=== PATIENT | male | born 1965 | race Asian ===

== ENCOUNTER 2019-05-20 03:09 | Outpatient (CLI) | payer BC, SELFPAY ==
--- NOTE | 2019-05-20 07:04 | DI.US_ITS ---
EXAM: US ABDOMEN CLINICAL HISTORY: RUQ PAIN, R10.11 TECHNIQUE: Ultrasound performed using standard protocol. COMPARISON: ABDOMEN ULTRASOUND (P) from 05/22/2017 FINDINGS: Ultrasound examination of the was performed according to the usual protocol. Note is made septated c yst of the right hepatic lobe measuring 26 x 12 x 16 millimeters, grossly unchanged from prior study 05/22/2017. No evidence of cholelithiasis or biliary dilatation. Pancreas is unremarkable in appearance as visua lized although not ideally seen. Spleen appears normal. Kidneys are unremarkable in appearance. Ab dominal aorta and IVC are of normal diameter. IMPRESSION: Essentially negative abdominal ultrasound.
[2019-05-20 08:02] LABS: HCT 39.8 % (40.0-50.0); HGB 13.6 g/dL (13.5-17.5); Mean Corp. HGB Concentration 34.2 g/dL (32.0-36.0); Mean Corpuscular Hemoglobin 30.2 pg (27.0-33.0); Mean Corpuscular Volume 88.2 fL (80-95); Mean Platelet Volume 10.1 fL (8.0-11.0); Platelet Count 259 x1000/uL (130-400); RBC 4.51 m/cumm (4.50-6.00); RBC Distribution Width 11.9 % (11.8-14.1); White Blood Cell Count 4.72 k/cumm (4.4-10.8)
[2019-05-20 08:37] LABS: ALT 145 U/L (16-63); AST 56 U/L (15-37); Alkaline Phosphatase 97 U/L (46-116); Anion Gap 8.2 mmol/L (3-11); BUN 16 mg/dL (7-18); Bilirubin, Total 0.8 mg/dL (0.2-1.0); CO2 27.8 mmol/L (21.0-32.0); CREATININE 0.83 mg/dL (0.70-1.30); Calcium 8.8 mg/dL (8.5-10.1); Calculated LDL 162 mg/dL; Chloride 105 mmol/L (98-107); Cholesterol 231 mg/dL (<200); Glucose 93 mg/dL (74-106); HDL Cholesterol 61 mg/dL (40-60); Potassium 3.8 mmol/L (3.5-5.1); Sodium 141 mmol/L (136-145); Total Protein 6.9 g/dL (6.4-8.2); Triglyceride 40 mg/dL (<150)
== END 2019-05-20 03:29 ==
PROVIDERS: PCP Nurse Practitioner; Visit Provider Nurse Practitioner
DX: R10.11 Right upper quadrant pain (principal); Z13.220 Encounter for screening for lipoid disorders; K76.89 Other specified diseases of liver
CPT/HCPCS: 36415; 80053; 80061; 85027; 76700

== ENCOUNTER 2020-08-30 02:10 | Outpatient (CLI) | payer BC, SELFPAY ==
--- NOTE | 2020-08-30 07:45 | DI.US_ITS ---
EXAM: US RENAL CLINICAL HISTORY: R sided flank pain, proteinurIA,R80.9 TECHNIQUE: Ultrasound of both kidneys performed using standard protocol. COMPARISON: US US ABDOMEN from 05/20/2019 FINDINGS: RIGHT KIDNEY: Measures 10.3 cm in length. No cysts evident. Normal cortical thickness and corticomedullary differen tiation .No solid masses No intrarenal calculi nor hydronephrosis. LEFT KIDNEY: Measures 10.3 cm in length. No cysts evident. Normal cortical thickness and corticomedullary differe ntiaion. No solids masses. No intrarenal calculi nor hydonephrosis. URINARY BLADDER: Prevoid volume is 163 cc Postvoid volume is 4 cc No evidence of bladder mass nor diverticuli. Ureterovesical jets: Both identified and appear symmetrical IMPRESSION: 1. No significant ultrasound findings in the kidneys. 2. Bladder empties adequately. Prostate size appears upper. DATA REPOSITORY:
== END 2020-08-30 02:30 ==
PROVIDERS: PCP Nurse Practitioner; Visit Provider Family Medicine
DX: R80.9 Proteinuria, unspecified (principal); R10.9 Unspecified abdominal pain
CPT/HCPCS: 76770

== ENCOUNTER 2020-08-30 03:24 | Outpatient (CLI) | payer BC, SELFPAY ==
[2020-08-30 09:13] LABS: ALT 180 U/L (16-63); AST 98 U/L (15-37); Albumin 4.3 g/dL (3.4-5.0); Alkaline Phosphatase 135 U/L (46-116); BUN 15 mg/dL (7-18); Bilirubin, Direct 0.3 mg/dL (0.0-0.2); CREATININE 0.9 mg/dL (0.70-1.30); Calcium 9.4 mg/dL (8.5-10.1); Chloride 100 mmol/L (98-107); Glucose 129 mg/dL (74-106); Potassium 4.5 mmol/L (3.5-5.1); Sodium 137 mmol/L (136-145); Total Protein 7.5 g/dL (6.4-8.2)
== END 2020-08-30 03:25 | disposition home or self-care (01) ==
LOC: LBO 03:25
PROVIDERS: Family Medicine; PCP Nurse Practitioner; Visit Provider Nurse Practitioner
DX: R80.9 Proteinuria, unspecified (principal)
CPT/HCPCS: 36415; 80053; 80076; 82248

== ENCOUNTER 2020-09-03 07:39 | Outpatient (REF) | payer BC, SELFPAY ==
[2020-09-03 09:14] LABS: PROTEIN < 6.0 mg/dL (0.0-11.9); Total Volume 2000 ml
== END 2020-09-03 07:40 | disposition home or self-care (01) ==
LOC: LBN 07:39
PROVIDERS: PCP Nurse Practitioner; Visit Provider Family Medicine
DX: R80.9 Proteinuria, unspecified (principal)
CPT/HCPCS: 81050; 84155

== ENCOUNTER 2020-10-25 02:36 | Outpatient (CLI) | payer BC, SELFPAY ==
[2020-10-25 07:43] LABS: Abs Immature Grans 0.01 10^3/uL (0.0-0.06); Absolute Basophil Count 0.02 10^3/uL (0.0-0.2); Absolute Eosinophil Count 0.15 10^3/uL (0.0-0.7); Absolute Lymphocyte Count 1.39 10^3/uL (1.2-3.4); Absolute Monocyte Count 0.37 10^3/uL (0.1-0.8); Absolute Neutrophil Count 1.65 10^3/uL (1.2-6.7); Basophils % 0.6; Eosinophils % 4.2; HCT 40.9 % (40.0-50.0); Immature Grans % 0.3; Lymphocytes % 38.7; MCHC 34.2 % (32.0-36.0); MCV 87.8 fL (80-95); MPV 9.8 fL (8.0-11.0); Monocytes % 10.3; Neutrophils % 45.9; Nucleated RBC 0 %; Platelet Count 227 10^3/uL (130-400); RBC 4.66 10^6/uL (4.36-5.78); RDW 11.9 % (11.8-14.1); RDW-SD 38.3 fL; WBC 3.59 10^3/uL (4.4-10.8)
[2020-10-25 08:20] LABS: Lipase 80 U/L (73-393)
[2020-10-26 09:42] LABS: Hepatitis C Ab w Rflx HCV PCR Negative (Negative)
[2020-10-26 10:26] LABS: Alpha 1 Antitrypsin,Serum 120 mg/dL (90-200)
[2020-10-26 11:36] LABS: HBs Antibody, Quant >1000.0 mIU/mL (See Note); Hep B Surface Ab Positive (See Note); Hepatitis B Core Antibody Positive (Negative); Hepatitis B Surface Antigen Negative (Negative)
[2020-10-26 15:07] LABS: ANA Interpretation Positive (Negative); ANA Titer Pattern 1:80 Speckled
[2020-10-26 15:59] LABS: Smooth Muscle Ab Screen Negative (Negative)
== END 2020-10-25 02:37 | disposition home or self-care (01) ==
LOC: LBO 02:36
PROVIDERS: PCP Family Medicine; Visit Provider Family Medicine
DX: R94.5 Abnormal results of liver function studies (principal)
CPT/HCPCS: 36415; 83690; 86704; 86706; 86803; 87340; 82103; 85025; 86038; 86255

== ENCOUNTER 2022-12-15 15:42 | Outpatient (CLI) | payer BC, SELFPAY ==
--- NOTE | 2022-12-15 12:15 | DI.RAD_ITS ---
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 TECHNIQUE: 2D digital imaging was performed. Five views. COMPARISON: CR RIGHT RIBS TO INCLUDE CXR from 06/09/2014 CT UPPER ABD WITH CONTRAST (P) from 06/15/2014 FINDINGS: There is partial sacralization of L5 with the diminutive disc. There are small endplate osteophytes, greatest on the right side at L1-2. The disc spaces are maintained. There are mild facet degenerat marni changes. No scoliosis, spondylolysis or spondylolisthesis. Mild degenerative changes are noted in the SI joints, right greater than left. The soft tissues are unremarkable. IMPRESSION: Mild degenerative changes. DATA REPOSITORY: RADIATION DOSE DELIVERED:
--- NOTE | 2022-12-15 12:15 | DI.RAD_ITS ---
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 TECHNIQUE: 2D digital imaging was performed. Three views. COMPARISON: No exams were available for comparison FINDINGS: BONES: No acute fracture is present. No bony destructive lesion is seen. JOINTS: No dislocation present. No significant degenerative changes. SOFT TISSUE: Normal. IMPRESSION: Unremarkable radiographs of the left shoulder. DATA REPOSITORY: RADIATION DOSE DELIVERED:
--- NOTE | 2022-12-15 12:15 | DI.RAD_ITS ---
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 TECHNIQUE: 2D digital imaging was performed. COMPARISON: No exams were available for comparison FINDINGS: BONES: No fracture or destructive lesion. Vertebral bodies are unremarkable. There are mild facet d egenerative changes. No significant neural foraminal narrowing. DISKS: There is mild narrowing of the C5-6 disc space with small endplate osteophytes projecting ante riorly. There is moderate narrowing of the C6-7 disc space with small endplate osteophytes. The rem ain intervertebral disc spaces are maintained. ALIGNMENT: Cervical spinal alignment is within normal limits. The odontoid and atlantoaxial articulat ions are normal. SOFT TISSUE: Normal. The lung apices are clear. IMPRESSION: Degenerative changes at C5-6 and C6-7. DATA REPOSITORY: RADIATION DOSE DELIVERED:
== END 2022-12-15 16:02 ==
LOC: DI 15:43
PROVIDERS: PCP Family Medicine; Visit Provider Nurse Practitioner Adult Health
DX: M50.322 Other cervical disc degeneration at C5-C6 level (principal); M54.16 Radiculopathy, lumbar region; M25.512 Pain in left shoulder
CPT/HCPCS: 72050; 72110; 73030

== ENCOUNTER → 2023-08-26 04:00 | Outpatient (CLI) | payer BC, SELFPAY ==
--- NOTE | 2023-08-26 07:15 | DI.RAD_ITS ---
Exam(s) XR KNEE LT 3V AP,LAT,FARHAN EXAM: XR KNEE LT 3V AP,LAT,FARHAN CLINICAL HISTORY: Likely meniscal tear,derangement lt knee,m23.209. TECHNIQUE: 2D digital imaging was performed. Three views. COMPARISON: CR LEFT KNEE 3 VIEW COMPLETE from 02/07/2012 FINDINGS: BONES: Osteochondral defect of the medial femoral condyle is again noted. It was better demonstrated on the previous exam. No acute fracture is present. No bony destructive lesion is seen. Small enthe sophyte upper pole patella. JOINTS: The knee is normally aligned. No joint effusion is seen. Moderate narrowing of the medial f emoral tibial joint space. SOFT TISSUE: Normal. IMPRESSION: Old osteochondral defect of the medial femoral condyle. Moderate degenerative changes of the medial femoral tibial joint. DATA REPOSITORY: RADIATION DOSE DELIVERED:
== END ==
PROVIDERS: PCP Family Medicine; Visit Provider Family Medicine
DX: M23.8X2 Other internal derangements of left knee; M21.862 Other specified acquired deformities of left lower leg
CPT/HCPCS: 73562

== ENCOUNTER 2023-09-30 19:04 | Emergency (ER) | payer BC, SELFPAY ==
[2023-09-30 19:07] VITALS: BP 197/94; PULSE 88; RESP 18; TEMP 37.1; O2SAT 99
[2023-09-30] MEDS: Tetracaine 0.5% 4 ML BTL OP (19:12)
[2023-09-30] MEDS: Fluorescein STRIPS 100/BOX 1 MG OP (19:12)
[2023-09-30] MEDS: Erythromycin Ophth Oint 3.5 GM TUBE OS (19:32)
[2023-09-30 19:33] VITALS: RESP 18
--- NOTE | 2023-09-30 20:31 | ED.GENADUL_ITS ---
Discharge Plan Disposition Patient Disposition: Home Condition: Stable Discharge Details Clinical Impression: Corneal abrasion, left Primary Care Provider: [facility] ED Provider: Jessica Jackson Home Meds and New Rx's Prescriptions: No Action albuterol sulfate 90 mcg/actuation HFA aerosol inhaler 2 puff IH QID PRN (Reason: shortness of breath or wheezing) Qty: 18 3RF atorvastatin 40 mg tablet 40 mg PO DAILY Qty: 90 3RF amlodipine 5 mg tablet 5 mg PO DAILY Qty: 90 3RF lisinopril 20 mg tablet 20 mg PO DAILY Qty: 90 3RF naproxen 500 mg tablet 500 mg PO BID PRN (Reason: pain) Qty: 120 3RF Hold Instructions: Changed by Provider Discharge Instructions Instructions: Corneal Abrasion (ED) Additional Instructions: USE OINTMENT THREE TIMES PER DAY UNTIL SYMPTOMS RESOLVE IF YOU HAVE WORSENING SYMPTOMS FOLLOW UP WITH EYE CLINIC Referrals: [facility] [Outside] Jessica Jackson MD [Emergency Provider] - [facility] General Date/Time Provider Initiated Documentation: 09/30/23 19:06 . Limitations to Documentation: no limitations . Information obtained by: patient and family . HPI Narrative: 58-year-old gentleman with past medical history including hypertension presents for evaluation of acute left eye pain. He reports that he thinks that a fly got into his eye earlier today. He was rubbing it. He reports pain worse with blinking. He feels like something is in his eye. He denies any pain with eye movement or any significant change in vision. Does not wear contact lenses. Related Data Home Medications Medication Instructions Recorded Confirmed albuterol sulfate 90 mcg/actuation 2 puff inhalation QID PRN 11/15/20 09/16/23 aerosol inhaler shortness of breath or wheezing #18 grams atorvastatin 40 mg tablet 40 mg PO DAILY #90 tabs 12/15/22 09/16/23 amlodipine 5 mg tablet 5 mg PO DAILY #90 tabs 08/24/23 09/16/23 lisinopril 20 mg tablet 20 mg PO DAILY #90 tabs 08/24/23 09/16/23 naproxen 500 mg tablet 500 mg PO BID PRN pain #120 tabs 08/24/23 09/16/23 Previous Rx's Medication Instructions Recorded albuterol sulfate 90 mcg/actuation 2 puff inhalation QID PRN 11/15/20 aerosol inhaler shortness of breath or wheezing #18 grams atorvastatin 40 mg tablet 40 mg PO DAILY #90 tabs 12/15/22 amlodipine 5 mg tablet 5 mg PO DAILY #90 tabs 08/24/23 lisinopril 20 mg tablet 20 mg PO DAILY #90 tabs 08/24/23 naproxen 500 mg tablet 500 mg PO BID PRN pain #120 tabs 08/24/23 Allergies Allergy/AdvReac Type Severity Reaction Status Date / Time No Known Allergies Allergy Verified 09/16/23 08:45 General Stated Complaint: EyeProblem RAFFAELE: 4 Exam Narrative Exam Narrative: Review of Systems: All systems reviewed & are unremarkable except as noted in HPI and below Well-developed, no acute distress NCAT Left eye with some periorbital swelling, conjunctiva is injected and tearing, visual acuity is normal. Fluorescein examination performed and there is a corneal abrasion with uptake at 3:00 RRR Unlabored respiratory effort Nondistended abdomen Extremities w/o deformity, no cyanosis, no edema No rashes or lesions. no focal neurologic deficits Appropriate mood and affect Course Vital Signs Vital signs: Vital Signs Temperature 37.1 C 09/30/23 19:07 Pulse 88 09/30/23 19:07 Respiratory Rate 18 09/30/23 19:07 Blood Pressure 197/94 H 09/30/23 19:07 Pulse Oximetry 99 09/30/23 19:07 Temperature 37.1 C 09/30/23 19:07 Temperature Source Skin 09/30/23 19:07 Pulse 88 09/30/23 19:07 Respiratory Rate 18 09/30/23 19:33 Respiratory Effort Normal 09/30/23 19:10 Blood Pressure 197/94 H 09/30/23 19:07 Blood Pressure Position Sitting 09/30/23 19:07 Pulse Oximetry 99 09/30/23 19:07 Oxygen Delivery Method Room Air 09/30/23 19:07 Oxygen Flow Rate 0 09/30/23 19:07 Medical Decision Making Emergent evaluation of left eye pain. Initial differential includes foreign body, corneal abrasion, less likely preseptal cellulitis. Examination is consistent with corneal abrasion. The patient was provided with erythromycin ointment. Instructed to use 3 times a day. If symptoms are not improving, follow-up with [facility] Quality:SDOH Health Related Social Needs: No Data to Display PFSH All Active Problems Corneal abrasion, left (Acute) Tear of meniscus of left knee (Acute) Chronic meniscal tear of knee (Acute) Radiculopathy, lumbar region (Acute) Hepatitis B core antibody positive (Acute) Polyarthritis (Acute) Proteinuria (Acute) Elevated liver enzymes (Acute) Hypertension (Chronic) Hyperlipidemia (Acute) RUQ pain (Acute) Wheeze (Acute) Cough (Acute) Surgical History History of colonoscopy with polypectomy [facility] – [place]-NORMAL Family History Mother No problems noted. Social History Smoking/Tobacco Use Status: Never Smoking risk assessment performed?: Yes Alcohol Intake: never Drug use: Never
== END 2023-09-30 19:33 | disposition home or self-care (01) ==
PROVIDERS: Emergency Provider Emergency Medicine; PCP Family Medicine
DX: S05.02XA Injury of conjunctiva and corneal abrasion without foreign body, left eye, initial encounter (principal); W44.8XXA Other foreign body entering into or through a natural orifice, initial encounter
CPT/HCPCS: 99283

== ENCOUNTER 2024-08-05 00:28 | Outpatient (CLI) | payer BC, SELFPAY ==
--- NOTE | 2024-08-05 06:15 | DI.MRI_ITS ---
Exam(s) MR LOWER JOINT LT WO EXAM: MR LOWER JOINT LT WO CLINICAL HISTORY: tear meniscus lt knee,chronic tear,m23.209,s83.207a TECHNIQUE: Multiplanar multisequence MRI of the knee was performed. COMPARISON: CR XR KNEE LT 3V AP,LAT,FARHAN from 08/26/2023 FINDINGS: EFFUSION: There is a small knee joint effusion. There is no Gomez cyst in the popliteal fossa. MARROW:There are no fractures. However, there is subarticular bone edema in the main weight-bearing surface of the medial femoral condyle and subjacent medial tibial plateau related to degenerative gautam nges in the medial compartment. There are degenerative subarticular cysts ranging up to 8 mm size in the anterior aspect of the medial tibial plateau and smaller degenerative cysts are noted in the sub articular medial femoral condyle. There is full-thickness articular cartilage loss over the main akosua ght-bearing surface of the medial femoral condyle and there are marginal osteophytes off the inner an d outer aspects of the medial femoral condyle. There is no distinct osteochondral defect. Similar d egenerative changes are not evident in the lateral compartment. PATELLOFEMORAL COMPARTMENT: The quadriceps tendon is intact. The patellar ligament is intact. There is small superficial fissure in the retropatellar cartilage over the lateral facet (series [id number] /image [id number]). There is no true osteochondral defect at this level. There is mild thinning of the retr opatellar cartilage over the medial patellar facet with mild subjacent bone edema in the posterior as pect of the patella at this level.There is no intraosseous signal to suggest recent patellar dislocat ion. There are no patellar retinacular tears. CRUCIATE LIGAMENTS: The anterior cruciate ligament is intact.The posterior cruciate ligament is intac t. MEDIAL COMPARTMENT/MEDIAL MENISCUS: There is a tear in the body of the medial meniscus there is mild extrusion of the anterior horn. There are overlying marginal osteophytes. The meniscal root is intact . There is a oval fluid collection just lateral to the meniscus interposed between the lateral aspect of the meniscus and the medial collateral ligament, this measuring 1.4 cm AP by 0.9 cm craniocaudal by 0.2 cm wide. This is probably a degenerative meniscal cyst. There is advanced full-thickness cartilage loss over the main weight-bearing surfaces of the medial c ompartment.Also subarticular bone edema as described above in the medial tibial plateau and overlying medial femoral condyle as well as degenerative subarticular cysts. There also small marginal osteoph ytes off the outer aspect and inner aspect of the medial femoral condyle as well as outer aspect of t he medial tibial plateau. MEDIAL COLLATERAL LIGAMENT: Mild sprain signal. No tear. LATERAL COMPARTMENT/LATERAL MENISCUS: There is subtle suggestion of small area of tear at the menisca l root region of the posterior horn of the lateral meniscus. The anterior horn appears intact.There a re no chondral defects, osteochondral defects, subarticular marrow edema, nor osteophytes evident. ILIOTIBIAL BAND: Intact LATERAL COLLATERAL LIGAMENT COMPLEX: The fibular collateral ligament is intact. The biceps femoris t endon is intact.Popliteus muscle and tendon are intact. IMPRESSION: 1. There is tearing in the body of the medial meniscus and mild extrusion of the anterior horn. There appears to be an adjacent 14 x 9 x 2 mm degenerative meniscal cyst. There are advanced degenerative changes in the medial compartment as described above. 2. Subtle suggestion of tearing in the posterior horn of the lateral meniscus at the level the menisc al root. There are no obvious degenerative changes in the medial compartment. 3. There are no cruciate nor collateral ligament tears. 4. There is mild chondromalacia the retropatellar cartilage and there is a small superficial fissure in the retropatellar cartilage over the lateral facet. 5. There is a small knee joint effusion. There is no Gomez cyst. DATA REPOSITORY:
== END 2024-08-05 00:48 ==
LOC: DI 00:28
PROVIDERS: PCP Family Medicine; Visit Provider Student in an Organized Health Care Education/Training Program
DX: M23.212 Derangement of anterior horn of medial meniscus due to old tear or injury, left knee (principal)
CPT/HCPCS: 73721

== ENCOUNTER 2025-01-27 01:04 | Outpatient (CLI) | payer BC, SELFPAY ==
[2025-01-27 07:54] LABS: ALT 86 U/L (16-63); AST 49 U/L (15-37); Albumin 4.5 g/dL (3.4-5.0); Alkaline Phosphatase 142 U/L (46-116); Anion Gap 8.8 mmol/L (3-11); BUN 12 mg/dL (7-18); Bilirubin, Total 0.8 mg/dL (0.2-1.0); CO2 29.2 mmol/L (21.0-32.0); Calcium 9.3 mg/dL (8.5-10.1); Calculated LDL 148 mg/dL (<100); Chloride 102 mmol/L (98-107); Cholesterol 236 mg/dL (<200); Estimated GFR 101.95 (mL/min/1.73m2); Glucose 199 mg/dL (74-106); HDL Cholesterol 77 mg/dL (>or=40); Potassium 4.3 mmol/L (3.5-5.1); Sodium 140 mmol/L (136-145); Total Protein 8.0 g/dL (6.4-8.2); Triglyceride 59 mg/dL (<150)
== END 2025-01-27 01:05 | disposition home or self-care (01) ==
LOC: LBO 01:04
PROVIDERS: PCP Family Medicine; Referring Provider Family Medicine; Visit Provider Family Medicine
DX: E78.5 Hyperlipidemia, unspecified (principal)
CPT/HCPCS: 36415; 80053; 80061